=== PATIENT | male | born 1980 | race Caucasian/White ===

== ENCOUNTER → 2018-07-24 | Outpatient (CLI) | payer BC ==
--- NOTE | 2018-07-24 11:50 | US ---
EXAMINATION TYPE: US abdomen complete DATE OF EXAM: 07/24/2018 COMPARISON: NONE CLINICAL HISTORY: R10.0 Abdominal pain. Abd x 1 week EXAM MEASUREMENTS: Liver Length: 18.6 cm Gallbladder Wall: 0.2 cm CBD: 0.5 cm Spleen: 9.9 cm Right Kidney: 10.3 x 4.9 x 4.9 cm Left Kidney: 11.4 x 5.3 x 5.2 cm overlying bowel gas limits exam Pancreas: not seen due to bowel gas Liver: intercostal viewing, wnl Gallbladder: sludge seen Evidence for sonographic Fajardo's sign: YES CBD: wnl Spleen: wnl Right Kidney: wnl Left Kidney: wnl Upper IVC: wnl Abd Aorta: wnl The liver is homogenous. The intrahepatic portion of the IVC and proximal abdominal aorta are within normal limits. There is no evidence of cholelithiasis. Common bile duct is unremarkable. The visu alized portions of the pancreas are homogenous. The spleen is unremarkable. Kidneys are symmetric a nd free of hydronephrosis. No renal lesions are seen. IMPRESSION: Biliary sludge and positive sonographic Fajardo sign are seen. Although no sonographic fin dings of acute cholecystitis are seen given the positive sonographic Fajardo sign HIDA and would be re commended to exclude acute cholecystitis.
== END ==
LOC: RADUSWWP 10:49
PROVIDERS: ATTEND Family Medicine
DX: R93.2 Abnormal findings on diagnostic imaging of liver and biliary tract (principal)
CPT/HCPCS: 76700

== ENCOUNTER → 2018-07-31 | Outpatient (CLI) | payer BC ==
--- NOTE | 2018-07-31 09:53 | NM ---
Nuclear medicine hepatobiliary scan. HISTORY: Pain. DOSAGE: The patient received 8 fluid oz. of Ensure Plus and 5.2 mCi of Technetium 99m Choletec. FINDINGS: There is normal hepatic extraction. The gallbladder is seen by 10 minutes. There is bilia ry to bowel clearance by 20 minutes. Ejection fraction is 33%. IMPRESSION: 1. Ejection fraction of 33% correlate for biliary dyskinesia
== END ==
LOC: RADNMMAIN 06:53
PROVIDERS: ATTEND Family Medicine
DX: R93.5 Abnormal findings on diagnostic imaging of other abdominal regions, including retroperitoneum (principal)
CPT/HCPCS: 78226; A9537

== ENCOUNTER 2021-12-28 09:12 | Emergency (ER) | payer BC ==
[2021-12-28 09:19] VITALS: RESP 16; TEMP 98.1
[2021-12-28] MEDS ORDERED: ONDANSETRON 4 MG/2 ML VIAL IVP STA (09:53)
[2021-12-28] MEDS ORDERED: SODIUM CHLORIDE 0.9% 2,000 ML IV STA (09:53)
[2021-12-28] MEDS ORDERED: KETOROLAC 15 MG/ML 1 ML VIAL IVP STA ×2 (09:53→11:40)
[2021-12-28] MEDS ORDERED: HYDROmorphone 0.5 MG/0.5 ML SYRINGE IVP STA ×2 (09:53→11:40)
--- NOTE | 2021-12-28 09:56 | ED ---
Abdominal Pain HPI - General Chief Complaint: Abdominal Pain Stated Complaint: Abd Pain Time Seen by Provider: 12/28/21 09:39 Source: patient, family, RN notes reviewed Mode of arrival: ambulatory Limitations: no limitations - History of Present Illness Initial Comments: 41-year-old male presents emergency Department with chief complaint of right- sided flank pain. Patient states that this pain started about a week ago. Patient did follow-up with his PCP on Tuesday in which she has ultrasound ordered for possible kidney stone. Patient states that his ultrasound is not until January 08. Patient states that the pain is unbearable at times states his been nausea, vomiting states pain rates from the right side down into his scrotum. He has no dysuria no noted hematuria no history kidney stones he has had prior cholecystectomy. Patient denies any fevers or chills no diarrhea no constipation - Related Data Home Medications Medication Instructions Recorded Confirmed Atorvastatin [Lipitor] 20 mg PO DAILY 12/28/21 12/28/21 Previous Rx's Medication Instructions Recorded Ketorolac [Toradol] 10 mg PO Q8HR #15 tab 12/28/21 Ondansetron Odt [Zofran Odt] 4 mg PO Q8HR PRN #10 tab 12/28/21 Allergies Allergy/AdvReac Type Severity Reaction Status Date / Time No Known Allergies Allergy Verified 12/28/21 11:56 Review of Systems ROS Statement: Those systems with pertinent positive or pertinent negative responses have been documented in the HPI. ROS Other: All systems not noted in ROS Statement are negative. Past Medical History Past Medical History: Hyperlipidemia History of Any Multi-Drug Resistant Organisms: None Reported Past Surgical History: Cholecystectomy, Orthopedic Surgery Smoking Status: Never smoker Past Alcohol Use History: Occasional Past Drug Use History: None Reported General Exam Limitations: no limitations General appearance: alert, in no apparent distress Head exam: Present: atraumatic, normocephalic, normal inspection Eye exam: Present: normal appearance, PERRL, EOMI. Absent: scleral icterus, conjunctival injection, periorbital swelling Respiratory exam: Present: normal lung sounds bilaterally. Absent: respiratory distress, wheezes, rales, rhonchi, stridor Cardiovascular Exam: Present: regular rate, normal rhythm, normal heart sounds. Absent: systolic murmur, diastolic murmur, rubs, gallop, clicks GI/Abdominal exam: Present: soft, tenderness, normal bowel sounds. Absent: distended, guarding, rebound, rigid Back exam: Present: CVA tenderness (R). Absent: CVA tenderness (L) Neurological exam: Present: alert Skin exam: Present: warm, dry, intact, normal color. Absent: rash Course Vital Signs 12/28/21 12/28/21 09:14 09:20 Temperature 98.1 F Pulse Rate 94 Respiratory 16 Rate Blood Pressure 135/91 O2 Sat by Pulse 99 Oximetry Medical Decision Making - Medical Decision Making Patient presented for scrotal pain, right-sided flank pain. CT was unremarkable and was performed showed evidence of nodule which is significantly needs to be ruled out. Patient may be having referred pain. Patient will follow-up with urology patient given on-call urology. - Lab Data Result diagrams: 12/28/21 10:17 12/28/21 10:17 Lab Results 12/28/21 12/28/21 12/28/21 Range/Units 10:17 10:17 10:17 WBC 5.9 (3.8-10.6) k/uL RBC 4.95 (4.30-5.90) m/uL Hgb 15.6 (13.0-17.5) gm/dL Hct 45.9 (39.0-53.0) % MCV 92.8 (80.0-100.0) fL MCH 31.5 (25.0-35.0) pg MCHC 34.0 (31.0-37.0) g/dL RDW 13.3 (11.5-15.5) % Plt Count 276 (150-450) k/uL MPV 7.1 Neutrophils % 53 % Lymphocytes % 34 % Monocytes % 8 % Eosinophils % 1 % Basophils % 1 % Neutrophils # 3.1 (1.3-7.7) k/uL Lymphocytes # 2.0 (1.0-4.8) k/uL Monocytes # 0.4 (0-1.0) k/uL Eosinophils # 0.1 (0-0.7) k/uL Basophils # 0.0 (0-0.2) k/uL Sodium 139 (137-145) mmol/L Potassium 4.8 (3.5-5.1) mmol/L Chloride 102 (98-107) mmol/L Carbon Dioxide 29 (22-30) mmol/L Anion Gap 8 mmol/L BUN 16 (9-20) mg/dL Creatinine 0.90 (0.66-1.25) mg/dL Est GFR (CKD-EPI)AfAm >90 (>60 ml/min/1.73 sqM) Est GFR (CKD-EPI)NonAf >90 (>60 ml/min/1.73 sqM) Glucose 91 (74-99) mg/dL Calcium 9.1 (8.4-10.2) mg/dL Total Bilirubin 0.4 (0.2-1.3) mg/dL AST 29 (17-59) U/L ALT 31 (4-49) U/L Alkaline Phosphatase 51 (38-126) U/L Total Protein 8.3 H (6.3-8.2) g/dL Albumin 4.7 (3.5-5.0) g/dL Amylase 79 (30-110) U/L Lipase 135 (23-300) U/L Urine Color Light Yellow Urine Appearance Clear (Clear) Urine pH 5.0 (5.0-8.0) Ur Specific Simpson 1.021 (1.001-1.035) Urine Protein Negative (Negative) Urine Glucose (UA) Negative (Negative) Urine Ketones Negative (Negative) Urine Blood Negative (Negative) Urine Nitrite Negative (Negative) Urine Bilirubin Negative (Negative) Urine Urobilinogen <2.0 (<2.0) mg/dL Ur Leukocyte Esterase Negative (Negative) Disposition Clinical Impression: Right flank pain, Testicular nodule Disposition: HOME SELF-CARE Condition: Stable Instructions (If sedation given, give patient instructions): Flank Pain (ED) Additional Instructions: Please return to the Emergency Department if symptoms worsen or any other concerns. Prescriptions: Ketorolac [Toradol] 10 mg PO Q8HR #15 tab Ondansetron Odt [Zofran Odt] 4 mg PO Q8HR PRN #10 tab PRN Reason: Nausea Is patient prescribed a controlled substance at d/c from ED?: No Referrals: Marc Najera MD [Primary Care Provider] - 1-2 days Time of Disposition: 13:02
[2021-12-28 10:50] LABS: Appearance,Urine Clear (Clear); Bilirubin,Urine Negative (Negative); Blood,Urine Negative (Negative); Color,Urine Light Yellow; Glucose,Urine (UA) Negative (Negative); Ketones,Urine Negative (Negative); Leukocyte Esterase,Urine Negative (Negative); Nitrite,Urine Negative (Negative); Protein,Urine Negative (Negative); Specific Gravity,Urine 1.021 (1.001-1.035); Urobilinogen,Urine <2.0 mg/dL (<2.0)
--- NOTE | 2021-12-28 10:50 | CT ---
EXAMINATION TYPE: CT abdomen pelvis wo con DATE OF EXAM: 12/28/2021 COMPARISON: Ultrasound dated 07/24/2018 HISTORY: right flank pain CT DLP: 1368.4 mGycm Automated exposure control for dose reduction was used. TECHNIQUE: Helical acquisition of images was performed from the lung bases through the pelvis. FINDINGS: LUNG BASES: No significant abnormality is appreciated. LIVER/GB: Enlarged liver measuring 21.5 cm. Hepatic steatosis. No definite focal lesion seen by this nonenhanced CT scan. Previous cholecystectomy. PANCREAS: No significant abnormality is seen. SPLEEN: No significant abnormality is seen. ADRENALS: No significant abnormality is seen. KIDNEYS: No significant abnormality is seen. FREE AIR: No free air is visualized RETROPERITONEAL ADENOPATHY: None visualized REPRODUCTIVE ORGANS: No significant abnormality is seen URINARY BLADDER: Incompletely distended and grossly unremarkable. PELVIC ADENOPATHY: No pathologically enlarged pelvic lymph nodes. OSSEOUS STRUCTURES: Bilateral L5 pars break with grade 1 anterolisthesis of L5 over S1. No aggressiv e bone lesion. BOWEL: Unremarkable nondistended stomach and duodenum. No evidence of bowel obstruction. No gross co lonic mass. No evidence of acute appendicitis. OTHER: No sizable ascites. IMPRESSION: No definite radiodense urinary calculi. No hydroureter or hydronephrosis. No definite acute abnormali ty seen in the abdomen or the pelvis by this nonenhanced CT scan. Please note that a urinary tract infection or pyelonephritis can't be excluded by this CT scan. Incid ental findings as described above.
[2021-12-28 10:57] LABS: Basophils % (A) 1 %; Eosinophils # (A) 0.1 k/uL (0-0.7); Eosinophils % (A) 1 %; HCT 45.9 % (39.0-53.0); HGB 15.6 gm/dL (13.0-17.5); Lymphocytes % (A) 34 %; MCH 31.5 pg (25.0-35.0); MCV 92.8 fL (80.0-100.0); Mean Platelet Volume 7.1; Monocytes # (A) 0.4 k/uL (0-1.0); Monocytes % (A) 8 %; Neutrophils # (A) 3.1 k/uL (1.3-7.7); Neutrophils % (A) 53 %; Platelet Count 276 k/uL (150-450); RBC 4.95 m/uL (4.30-5.90); RDW 13.3 % (11.5-15.5); WBC 5.9 k/uL (3.8-10.6)
[2021-12-28 11:07] LABS: ALT 31 U/L (4-49); AST 29 U/L (17-59); African American GFR (CKD) >90 (>60 ml/min/1.73 sqM); Albumin 4.7 g/dL (3.5-5.0); Alkaline Phosphatase 51 U/L (38-126); Amylase 79 U/L (30-110); Anion Gap 8 mmol/L; Blood Urea Nitrogen 16 mg/dL (9-20); Calcium 9.1 mg/dL (8.4-10.2); Carbon Dioxide 29 mmol/L (22-30); Chloride 102 mmol/L (98-107); Glucose 91 mg/dL (74-99); Lipase 135 U/L (23-300); Non-African American GFR(CKD) >90 (>60 ml/min/1.73 sqM); Potassium 4.8 mmol/L (3.5-5.1); Sodium 139 mmol/L (137-145); Total Bilirubin 0.4 mg/dL (0.2-1.3); Total Protein 8.3 g/dL (6.3-8.2)
--- NOTE | 2021-12-28 12:15 | US ---
EXAMINATION TYPE: US scrotum with doppler. Grayscale and color Doppler Duplex imaging performed of geovanny vickers scrotum. DATE OF EXAM: 12/28/2021 COMPARISON: CT 12/28/2021 CLINICAL HISTORY: pain. EXAM MEASUREMENTS: TESTICLES: Right Testicle: 3.9 x 2.1 x 3.8 cm Left Testicle: 5.1 x 2.5 x 3.2 cm EPIDIDYMIS HEAD: Right Epididymis: 1.2 x 0.9 cm Left Epididymis: 1.2 x 0.8 cm Doppler performed to assess for testicular vascularity; good bilateral color flow and waveforms are s een. There is no evidence of testicular torsion. Presence of hydroceles: small amount of fluid around both testicles. Hypoechoic lesion left testicle measures 0.9 x 0.7 x 0.5 cm with peripheral flow. IMPRESSION: 1. There is a small intratesticular nonspecific nodule measuring 9 mm. Urology consultation recommend ed for testicular neoplasm. 2. Small bilateral hydroceles
[2021-12-28] MEDS ORDERED: ACET/COD 300 MG/30 MG STARTER PACK 6 TAB BTL PO STA (12:51)
[2021-12-28 13:24] VITALS: BP 111/63; PULSE 61
== END 2021-12-28 13:26 | disposition home or self-care (01) ==
LOC: EC 09:12
DX: N49.2 Inflammatory disorders of scrotum (principal); E78.5 Hyperlipidemia, unspecified; Z79.899 Other long term (current) drug therapy
CPT/HCPCS: 36415; 80053; 82150; 83690; 85025; 81003; 93975; 76870; 74176; 99284; 96374; 96375 ×2; 96376 ×2; 96361; J2405; J1885; J1170

== ENCOUNTER → 2022-02-04 | Outpatient (CLI) | payer BC ==
--- NOTE | 2022-02-04 12:18 | US ---
EXAMINATION TYPE: US scrotum with doppler. TECHNIQUE: Grayscale and color Doppler Duplex imaging performed of the scrotum. DATE OF EXAM: 02/04/2022 COMPARISON: 12/28/2021 CLINICAL HISTORY: 41-year-old male N50.89 DISORDERS OF THE MALE GENITAL ORGANS. Pain. Follow-up to pr evious FINDINGS: EXAM MEASUREMENTS: TESTICLES: Right Testicle: 4.6 x 2.6 x 2.9 cm Left Testicle: 4.6 x 2.5 x 3.1 cm Redemonstrated lobulated hypoechoic area left testicle measuring currently measuring 8 x 6 x 6 mm. Pr eviously measured 9 x 7 x 5 mm. This could represent a cyst with debris. Continued surveillance recom mended. Doppler performed to assess for testicular vascularity; good bilateral color flow and waveforms are s een. There is no evidence of testicular torsion. EPIDIDYMIS HEAD: Right Epididymis: .9 x 1.1 x 1.1 cm Left Epididymis: .7 x .8 x .7 cm Presence of hydroceles: no Presence of varicoceles: no IMPRESSION: Redemonstrated lobulated lesion within the left testicle. Currently, this measures 8 x 6 x 6 mm versu s 9 x 7 x 5 mm, previously. Not significantly changed. Possible intratesticular cyst with debris. The possibility of neoplasm not excluded at this time. Ongoing surveillance recommended.
== END ==
LOC: RADUSWWP 08:44
PROVIDERS: ATTEND Urology
DX: N50.89 Other specified disorders of the male genital organs (principal)
CPT/HCPCS: 76870; 93975

== ENCOUNTER → 2022-08-04 | Outpatient (CLI) | payer BC ==
--- NOTE | 2022-08-04 16:04 | US ---
EXAMINATION TYPE: US thyroid st tissue head/neck DATE OF EXAM: 08/04/2022 COMPARISON: NONE CLINICAL HISTORY: E04.9 GOITER. Goiter. GLAND SIZE: Right Lobe: 4.3 x 2.1 x 1.7 cm Overall Parenchyma: Slightly heterogeneous. Left Lobe: 4.4 x 2.0 x 1.2 cm Overall Parenchyma: Slightly heterogeneous. Isthmus Thickness: 0.29 cm NODULES RIGHT: # of nodules measured on right: 0 LEFT: # of nodules measured on left: 0 ISTHMUS: # of nodules measured in the isthmus: 0 Bilateral neck scanned, no evidence of lymphadenopathy. IMPRESSION: No suspicious thyroid nodules
[2022-08-04 18:22] LABS: HGB 14.8 g/dL (13.0-17.0); MCH 31.2 pg (27.0-32.0); MCHC 34.4 g/dL (32.0-37.0); MCV 90.7 fL (80.0-97.0); Mean Platelet Volume 10.1 fL (9.5-12.2); NRBC Per 100 WBC 0 /100 WBCS (0.0-0.0); Platelet Count 274 X 10*3/uL (140-440); RBC 4.74 X 10*6/uL (4.40-5.60); RDW 12.9 % (11.5-14.5); WBC 7.68 X 10*3/uL (4.50-10.00)
[2022-08-05 01:49] LABS: African American GFR (CKD) 102.9 (60.0-200.0); Albumin/Globulin Ratio 1.79 (1.60-3.17); Anion Gap 16.3 mmol/L (10.00-18.00); BUN/Creat Ratio 15.1 Ratio (12.00-20.00); Blood Urea Nitrogen 15.7 mg/dL (9.0-27.0); Calcium 9.9 mg/dL (8.7-10.3); Follicle Stimulating Hormone 3.2 mIU/mL; Globulin 2.8 g/dL (1.6-3.3); Luteinizing Hormone 2.4 mIU/mL; Non-African American GFR(CKD) 88.8 (60.0-200.0); Potassium 4.6 mmol/L (3.5-5.5); Prolactin 5.7 ng/mL (2.100-17.700); Prostate Specific Antigen 0.3 ng/mL (0.00-2.50); Total Bilirubin 0.6 mg/dL (0.30-1.20); Total Protein 7.8 g/dL (6.2-8.2)
== END | disposition home or self-care (01) ==
LOC: RADUSWWP 11:36
PROVIDERS: ATTEND Internal Medicine Endocrinology, Diabetes & Metabolism
DX: E04.9 Nontoxic goiter, unspecified (principal); E29.1 Testicular hypofunction
CPT/HCPCS: 36415; 76536; 80053; 83001; 83002; 84146; 84153; 84403; 85027

== ENCOUNTER → 2022-09-10 | Outpatient (CLI) | payer BC ==
[2022-09-10 16:37] LABS: Luteinizing Hormone 2.4 mIU/mL
== END | disposition home or self-care (01) ==
LOC: LABWHC1 10:54
PROVIDERS: ATTEND Internal Medicine Endocrinology, Diabetes & Metabolism
DX: E29.1 Testicular hypofunction (principal)
CPT/HCPCS: 36415; 82024; 83002; 84305; 84402; 84403

== ENCOUNTER → 2024-07-26 | Outpatient (CLI) | payer BC ==
[2024-07-26 15:55] VITALS: BP 148/90; PULSE 103; RESP 18; TEMP 98.1
--- NOTE | 2024-07-26 16:15 | P.SLEEP ---
History of Present Illness DATE: 07/26/2024 CONSULTATION/NEW PATIENT EVALUATION HISTORY OF PRESENT ILLNESS/SLEEP-WAKE EVALUATION: 43-year-old gentleman had been evaluated in the sleep center for possible obstructive sleep apnea hypopnea syndrome. SLEEP SCHEDULE: Usually sleep schedule from 1 AM until 6 AM on weekdays and from 11 PM to 5 AM on weekend. FALLING ASLEEP: No problems with falling asleep. DURING SLEEP: Patient snores and has witnessed episodes of stop breathing during the sleep by his . Patient wakes up from sleep 3 times with nocturia. Positive history of constant movements during the sleep no history of hypnogogical hallucinations, sleep paralysis, or cataplexy. DURING THE DAY/WAKE STATE: In the morning patient wake up tired, has episodes of irritability. [place] sleepiness scale is increased to 10. Sometimes patient take nap. PAST MEDICAL HISTORY: Erythrocytosis, hyperlipidemia, low testosterone level, migraines some started in the morning after awakenings, sinuses problems. PAST SURGICAL HISTORY: Left knee surgery, cholecystectomy. MEDICATIONS: Please see below. SOCIAL HISTORY: Please see below l. FAMILY HISTORY: Please see below. REVIEW OF SYSTEMS: Snoring, multiple awakenings from sleep, sleepiness during the day. No fevers. No double vision. No recent chest pain. No shortness of breath. No abdominal pain. No bleeding episodes. No blood in urine. No seizure episodes. PHYSICAL EXAMINATION: GENERAL: A pleasant patient without any distress. VITAL SIGNS: Please see below, weight 247.8 pounds, BMI 35.4. HEENT: PERRLA, EOMI. Evaluation of oropharynx showed tongue protrudes midline, low position of soft palate Mallampati 23. NECK: Supple. No JVD. Thyroid is not palpable. 18-3/4 inches in circumference. LUNGS: Clear to percussion and to auscultation. Good air exchange. No wheezing or rhonchi. HEART: S1, S2 regular. No murmurs, gallops or rubs. ABDOMEN: Soft and nontender. Bowel sounds are present. No organomegaly appreciated. EXTREMITIES: No clubbing or cyanosis. BILINGUAL RECRUITER: Awake, alert, and oriented x3. Cranial nerves 2 to 7 intact. There is no fasciculation or atrophy noted. No focal deficits observed. ASSESSMENT: 1. Snoring, witnessed episodes of stop breathing during the sleep, small oropharyngeal airspace, wide neck 18 and three-quarter inches in circumference, sleepiness with [place] Sleepiness Scale increased to 10, erythrocytosis. Obstructive sleep apnea hypopnea syndrome. 2. Erythrocytosis. 3. Obesity, BMI 35.4. 4. Significant amount of movements during the sleep, possibly periodic limb movements. 5 hyperlipidemia. 6 . History of low testosterone level. 7. Sinus problems. 8. Migraines with some episodes started in the morning after awakenings. 9 . Status post cholecystectomy. 10. Status post left knee surgery for meniscus and ACL problems. PLAN: 1. Polysomnography for evaluation of patient's breathing during sleep. 2. Following plan after reading sleep study. 3. Preferable position during sleep on the side. 4. No driving if patient feels any sleepiness. Patient is aware of civil and criminal liability for unsafe driving. 5. Sleep hygiene with regular sleep time for at least 7.5-8 hours. 6. Watching and losing weight. Thank you very much for referring this patient for consultation. Sincerely, Man Brown MD, PhD, FAASM. Diplomat of [place] [employer], Sleep Medicine Board by [place] [employer] [place] [employer] Engineer of [facility] [place] cc: Marc Najera MD Past Medical History Past Medical History: Hyperlipidemia Additional Past Medical History / Comment(s): Sinus headaches, snoring, headaches, insomnia, low testosterone. History of Any Multi-Drug Resistant Organisms: None Reported Past Surgical History: Cholecystectomy, Orthopedic Surgery Additional Past Surgical History / Comment(s): L knee X 2 (ACL and meniscus), also l knee drainage and injections. Past Psychological History: No Psychological Hx Reported Smoking Status: Former smoker Past Alcohol Use History: Occasional Past Drug Use History: None Reported - Past Family History Father Family Medical History: COPD, Diabetes Mellitus, GERD/Reflux, Hypertension, Pneumonia, Sleep Apnea/CPAP/BIPAP Additional Family Medical History / Comment(s): Arthritis, snoring, headaches, restless legs, bariatric surgery (Brother had sleep apnea, diabetes, snoring, bariatric surgery, GERD) 16 yr - Child with anemia. Mother Family Medical History: Congestive Heart Failure (CHF), Diabetes Mellitus, GERD/Reflux, Pneumonia, Sleep Apnea/CPAP/BIPAP Additional Family Medical History / Comment(s): Arthritis, CO2 retention and light case of COPD, on 2.5 LPM continuously, snoring, headaches Medications and Allergies Home Medications Medication Instructions Recorded Confirmed Type Atorvastatin [Lipitor] 20 mg PO DAILY 12/28/21 07/26/24 History Ketorolac [Toradol] 10 mg PO Q8HR #15 tab 12/28/21 Rx Ondansetron Odt [Zofran Odt] 4 mg PO Q8HR PRN #10 tab 12/28/21 Rx Allergies Allergy/AdvReac Type Severity Reaction Status Date / Time No Known Allergies Allergy Verified 12/28/21 11:56 Physical Exam Vitals: Vital Signs Temp Pulse Resp BP Pulse Ox 07/26/24 15:41 98.1 F 103 H 18 148/90 97 Intake and Output 07/26/24 07/26/24 07/26/24 06:59 14:59 22:59 Other: Weight 112.264 kg Sleep Note - Sleep Data ESS Total: 10 - Sleep Note Sleep Note: Temperature: 98.1 F Pulse Rate: 103 Respiratory Rate: 18 Blood Pressure: 148/90 SpO2: 97 Height: 5 ft 10 in Weight: 112.264 kg BMI: Neck Circumference: 18.7
== END ==
LOC: 3 N SLEEP 15:24
PROVIDERS: ATTEND Internal Medicine
DX: G47.33 Obstructive sleep apnea (adult) (pediatric) (principal); G47.10 Hypersomnia, unspecified; D75.1 Secondary polycythemia; E66.9 Obesity, unspecified; E78.5 Hyperlipidemia, unspecified; J34.89 Other specified disorders of nose and nasal sinuses; G43.909 Migraine, unspecified, not intractable, without status migrainosus; Z98.890 Other specified postprocedural states; Z90.49 Acquired absence of other specified parts of digestive tract; Z68.35 Body mass index [BMI] 35.0-35.9, adult
CPT/HCPCS: 99211

== ENCOUNTER 2024-07-29 19:32 | Outpatient (CLI) | payer BC ==
--- NOTE | 2024-08-01 15:45 | P.PCN ---
Description of Procedure: POLYSOMNOGRAPHY REPORT PROCEDURE(S)/DATE(S): Polysomnography 07/29/2024 CLINICAL: Patient has been seen in the sleep center for evaluation of obstructive sleep apnea-hypopnea syndrome. Please see my consultation. Sleep study has been done for evaluation of patient breathing during the sleep. PROCEDURE: The standard montage for clinical polysomnography included the electroencephalogram, the electrooculogram, the mentalis surface electromyography and Lead II cardiography. The respiratory battery consisted of measurements of nasal/buccal air flow, pressure transducer measurements from nose, thoracic and/or abdominal effort and intercostal surface electromyography. Video monitoring has been done to check for any parasomnia events. Nocturnal oxyhemoglobin saturations were obtained by finger oximetry. Step-art titration with positive airway pressure was utilized to control the respiratory events, if necessary. RESULTS: During the diagnostic sleep study sleep efficiency was extremely short 52.2%. Latency to sleep onset was normal range 24.5 min. Sleep architecture s howed stage NI was extremely high 42.6%, Delta sleep was normal 8.1%, REM sleep was normal 21.4%. Respiratory channel showed 49 obstructive apneas, 1 mixed apneas, 0 central apneas, 102 hypopneas with lowest oxygen level 65%. Total apnea hypopnea index was 45.9. Heart rate was in the range between 60 and 74, average 66. EMG showed 9.4 periodic limb movements per hour with 0.9 micro-arousals per hour. IMPRESSIONS: 1. Severe obstructive sleep apnea hypopnea syndrome with severe oxygen desaturation. 2. No significant periodic limb movements have been documented. Please see other impressions from consultation PLAN: 1. The patient will have PAP titration for correction of respiratory abnormalities during the sleep. 2. Losing weight program. 3. Sleep hygiene with regular time in bed for at least 7-1/2 hours. 4. No driving if feeling sleepiness. Thank you very much for allowing me to participate in the management of your patient. Sincerely, Man Brown MD, PhD, FAASM. Diplomat of [place] [employer], Sleep Medicine Board by [place] [employer] Chief Informatics Officer of [facility] [place] cc: Marc Najera MD
== END 2024-07-30 05:10 | disposition home or self-care (01) ==
LOC: 3 N SLEEP 19:32
PROVIDERS: ATTEND Internal Medicine
DX: G47.33 Obstructive sleep apnea (adult) (pediatric) (principal)
CPT/HCPCS: 95810

== ENCOUNTER 2024-08-30 19:52 | Outpatient (CLI) | payer BC ==
--- NOTE | 2024-09-06 11:03 | P.PCN ---
Description of Procedure: CLINICAL: Titration with positive air pressure has been done for correction of respiratory abnormalities during sleep. DESCRIPTION OF PROCEDURE: The standard montage for clinical polysomnography included the electroencephalogram, the electrocardiogram, the mentalis surface electromyography and Lead II cardiography. The respiratory battery consisted of measurements of nasal /buccal air flow, pressure transducer measurements from the nose, thoracic and /or abdominal effort and intercostal surface electromyography. Video monitoring has been done to check for any parasomnia events. Nocturnal oxyhemoglobin saturations were obtained by finger oximetry. Step-art titration with positive airway pressure was utilized to control respiratory events. Raw data of sleep recording has been reviewed and is adequate. RESULTS: Sleep efficiency was extremely short 51.0%. Latency to sleep onset was significantly prolonged to 87.5 minutes.]. Sleep architecture showed stage N1 was increased to 11.3%, Delta sleep was absent 0%, REM sleep was short 8.3%. Heart rate was minimum 67 BPM, maximum 79 BPM, average 71 BPM. EMG showed 44.6 periodic limb movements per hour with 1.3 micriarousals per hour. PAP titration have been done with CPAP up to the pressure 11 cm H2O. The best results were at the pressure 910 cm H2O. Apnea hypopnea index reduced to 00.5. IMPRESSION: 1. Obstructive sleep apnea hypopnea syndrome on controle with PAP treatment. 2. Significant periodic limb movements have been documented. Please see other impressions from consultation. PLAN: 1. The patient will have treatment with positive air pressure equipment with the level of pressure AutoPAP 512 cm H2O and should use it every night for the whole night. 2. Watching and losing weight. 3. Sleep hygiene with regular time in bed for at least 8 hours. 4. No driving if feeling any sleepiness. 5. I will see the patient for follow up visit to explain the results of the test, recommendations, check compliance with treatment and make any necessary adjustment related to mask fitting, pressure and humidification. 6. Please check iron profile including ferritin level. Low level of iron may increase risk for periodic limb movements Thank you very much for allowing me to participate in the management of your patient. Sincerely, Man Brown MD, PhD, FAASM Diplomat of [place] [employer] Sleep Medicine Board of [place] [employer] [facility] [place] cc: Marc Najera MD
== END 2024-08-31 05:00 | disposition home or self-care (01) ==
LOC: 3 N SLEEP 19:52
PROVIDERS: ATTEND Internal Medicine
DX: G47.33 Obstructive sleep apnea (adult) (pediatric) (principal); G47.61 Periodic limb movement disorder
CPT/HCPCS: 95811

== ENCOUNTER → 2024-11-29 | Outpatient (CLI) | payer BC ==
[2024-11-29 15:45] VITALS: BP 148/95; PULSE 101; RESP 16; TEMP 98.3
--- NOTE | 2024-11-29 17:37 | P.PROGSL ---
Subjective DATE: 11/29/2024 FOLLOW UP VISIT. Patient with obstructive sleep apnea hypopnea syndrome return to sleep center for follow-up visit. Information from previous visit have been reviewed. Recently patient had sleep studies which confirmed severe obstructive sleep apnea hypopnea syndrome. Patient was started on treatment with CPAP. Today is his first visit after treatment with CPAP was started. Explained results of sleep studies to the patient in details. Patient is using PAP equipment every night for the whole night, getting PAP supplies in time. The patient does not have significant problems with the mask, PAP unit and humidification. [place] sleepiness scale is 7, which is normal. I checked information from PAP unit. PAP unit pressure 5-12, AHI 11.5 cm H2O. Usage is 100% for more then 4 hours, average 7.25 hours per night. Leak is significantly increased to 50.2 l/m, which is in acceptable range. Apnea Hypopnea Index is 3.9, which is normal. MEDICATIONS have been reviewed, please see below. During physical exam: GENERAL: A pleasant patient without any distress. VITAL SIGNS: Please see below, weight is 250.2 lbs. HEENT: PERRLA, EOMI.low position of soft palate, [place] 23. NECK: Supple. No JVD. LUNGS: Clear to percussion and to auscultation. Good air exchange. No wheezing or rhonchi. HEART: S1, S2 regular. ABDOMEN: Soft and nontender.[] EXTREMITIES: No clubbing or cyanosis. UNDERBASTER: Awake, alert, and oriented x3. No focal deficit. Impressions: 1. Obstructive sleep apnea-hypopnea syndrome. Patient demonstrated great compliance with treatment, benefiting from treatment. 2. History of erythrocytosis. 3. Obesity. 4. Hyperlipidemia. 5. History of low testosterone level. 6. History of sinus problems. 7. Migraines. 8. Status post left knee surgery for meniscus and ACL problems. 9. Status post cholecystectomy. Plan: 1. Continue using PAP equipment every night for the whole night. 2. Sleep hygiene with regular time in bed for at least 7.5-8 hours 3. PAP unit should stay lower then position of the head. 4. Advised patient to remove all remaining water from humidifier canister daily and make it dry after each usage. Refill canister with fresh distilled water before each usage. 5. Watching and losing weight. 6. Precautions related to driving. No driving if feel any sleepiness. 7. I will maintain prescription for PAP supplies including mask, tube, filters. 8. Follow up visit in 8 months or earlier if patient has any problems. Thank you very much for allowing me to participate in the management of your patient. Man Brown MD, PhD, FAASM. Diplomat of [place] [employer], Sleep Medicine Board by [place] [employer] [facility] [place] Objective - Vital Signs Vital Signs: Vital Signs Temp 98.3 F 11/29/24 15:43 Pulse 101 H 11/29/24 15:43 Resp 16 11/29/24 15:43 BP 148/95 11/29/24 15:43 Pulse Ox 98 11/29/24 15:43 FiO2 Intake & Output 11/28/24 11/29/24 11/29/24 18:59 06:59 18:59 Weight 113.455 kg Home Medications: Home Medications Medication Instructions Recorded Confirmed Type Atorvastatin [Lipitor] 20 mg PO DAILY 12/28/21 07/26/24 History Ketorolac [Toradol] 10 mg PO Q8HR #15 tab 12/28/21 Rx Ondansetron Odt [Zofran Odt] 4 mg PO Q8HR PRN #10 tab 12/28/21 Rx
== END ==
LOC: 3 N SLEEP 15:31
PROVIDERS: ATTEND Internal Medicine
DX: G47.33 Obstructive sleep apnea (adult) (pediatric) (principal); G43.909 Migraine, unspecified, not intractable, without status migrainosus; E66.9 Obesity, unspecified; E78.5 Hyperlipidemia, unspecified; Z86.2 Personal history of diseases of the blood and blood-forming organs and certain disorders involving the immune mechanism; Z90.49 Acquired absence of other specified parts of digestive tract; Z96.651 Presence of right artificial knee joint
CPT/HCPCS: 99212